=== PATIENT | male | born 1970 | race Caucasian/White ===

== ENCOUNTER → 2020-04-01 | Outpatient (CLI) | payer OTHER ==
--- NOTE | 2020-04-01 17:35 | EKG REPORT ---
SEVERITY:- BORDERLINE ECG - SINUS RHYTHM BORDERLINE T WAVE ABNORMALITIES : Confirmed by: Thomas Ashraf MD 01-Apr-2020 17:34:56
== END ==
LOC: OD 16:49
PROVIDERS: ATTEND Family Medicine
DX: I47.9 Paroxysmal tachycardia, unspecified (principal)
CPT/HCPCS: 93005; 93010